=== PATIENT | male | born 1950 | race Caucasian/White ===

== ENCOUNTER → 2018-01-29 | Day surgery (SDC) | payer OTHER ==
[2018-01-27 14:42] LABS: BASOPHILS # (AUTO) 0.1 (0.0-0.1); BASOPHILS % 0.4 % (0.0-1.0); EOSINOPHILS # (AUTO) 0.2 (0.0-0.4); EOSINOPHILS % 1.3 % (0.0-6.0); HEMATOCRIT 45.7 % (38.2-49.6); HEMOGLOBIN 15.1 g/dL (14.0-18.0); LYMPHOCYTES # (AUTO) 2.7 (1.0-3.2); MEAN CORPUSCULAR VOLUME 81.8 fL (81-99); MONOCYTES # (AUTO) 1.3 (0.2-0.8); NEUTROPHILS # (AUTO) 9.8 (2.1-6.9); NEUTROPHILS % 69.4 % (38.7-80.0); PLATELET COUNT 290 x10e3/uL (140-360); RED BLOOD COUNT 5.59 x10e6/uL (4.3-5.7)
[~2018-01-29] MED LIST: ASPIRIN; ASPIRIN PO; BISOPROLOL-HCT1 EAC2 PO; CENTRUM SILVER; CENTRUM SILVER1 EAC3 PO; CINNAMON500 MG PO; FENTANYL CITRATE/PF 100MCG/2 ML INJ ONE; FLAXSEED-FISH-400 MG PO; FUROSEMIDE; HYDROCODONE-AP1 EAC5 PO; HYDROXYCHLOROQ200 MG PO; HYOSCYAMINE SULFATE 0.5 MG/ML INJ ONE; KLOR-CON; MIDAZOLAM HCL 2 MG/2 ML VIAL ONE; PIROXICAM20 MG PO; POTASSIUM CHLOR8 ME1 PO; POTASSIUM CHLORIDE PO; PROPOFOL IV EMULSION 10 MG/ML 50 ML VIAL ONE; TORSEMIDE10 MG PO; ULTRAM 50MG50 MG PO; VERAPAMIL; VERAPAMIL ER120 M1 PO; VITAMIN C; VITAMIN C1000 M1 PO; Z.0.SPIRONOLACTONE50 PO; Z.0.TORSEMIDE20 MG PO; [UNRECOGNIZED DRUG - CODE]
== END | disposition home or self-care (01) ==
LOC: OR 13:03
PROVIDERS: ATTEND Internal Medicine Gastroenterology
DX: Z12.11 Encounter for screening for malignant neoplasm of colon (principal); D12.2 Benign neoplasm of ascending colon; K57.30 Diverticulosis of large intestine without perforation or abscess without bleeding; K64.8 Other hemorrhoids; I10 Essential (primary) hypertension; Z01.810 Encounter for preprocedural cardiovascular examination; Z01.812 Encounter for preprocedural laboratory examination; Z79.82 Long term (current) use of aspirin
CPT/HCPCS: 36415; 45384; 85025; 93005; J1980; J2250; 45378

== ENCOUNTER → 2020-11-26 | Day surgery (SDC) | payer MEDICARE, OTHER ==
[2020-11-25 08:55] LABS: BASOPHILS # (AUTO) 0.1 (0.0-0.1); BASOPHILS % 0.6 % (0.0-1.0); EOSINOPHILS # (AUTO) 0.3 (0.0-0.4); EOSINOPHILS % 2.6 % (0.0-6.0); HEMATOCRIT 48.1 % (38.2-49.6); HEMOGLOBIN 15.3 g/dL (14.0-18.0); LYMPHOCYTES # (AUTO) 2.1 (1.0-3.2); LYMPHOCYTES % 16.1 % (18.0-39.1); MEAN CORPUSCULAR HEMOGLOBIN 26.9 pg (28-32); MEAN CORPUSCULAR HGB CONC 31.8 g/dL (31-35); MEAN CORPUSCULAR VOLUME 84.5 fL (81-99); MONOCYTES # (AUTO) 1.2 (0.2-0.8); MONOCYTES % 9.2 % (4.4-11.3); NEUTROPHILS # (AUTO) 9.1 (2.1-6.9); NEUTROPHILS % 70.7 % (38.7-80.0); PLATELET COUNT 306 x10e3/uL (140-360); RED BLOOD COUNT 5.69 x10e6/uL (4.3-5.7); RED CELL DISTRIBUTION WIDTH 13.9 % (11.7-14.4)
[2020-11-25 09:24] LABS: ANION GAP 15.5 mmol/L (8-16); CALCIUM 9.6 mg/dL (8.4-10.2); CREATININE, SERUM 1.32 mg/dL (0.72-1.25); POTASSIUM 3.5 mmol/L (3.5-5.1)
[~2020-11-26] MED LIST changes: +EPINEPHRINE 1 MG/ML 30ML VIAL ONE; +FISH OIL 1,0001 EAC2 PO; -HYOSCYAMINE SULFATE 0.5 MG/ML INJ ONE; +MELOXICAM7.5 MG PO; -MIDAZOLAM HCL 2 MG/2 ML VIAL ONE; -PROPOFOL IV EMULSION 10 MG/ML 50 ML VIAL ONE; +SODIUM CHLORIDE 0.9% 50ML 100 ML ONE; +TYLENOL ARTHRITIS PO
[2020-11-26 10:05] VITALS: BP 136/73
== END | disposition home or self-care (01) ==
LOC: OR 05:42
PROVIDERS: ATTEND Orthopaedic Surgery
DX: M75.121 Complete rotator cuff tear or rupture of right shoulder, not specified as traumatic (principal); M75.51 Bursitis of right shoulder; I10 Essential (primary) hypertension; Z01.810 Encounter for preprocedural cardiovascular examination; Z01.812 Encounter for preprocedural laboratory examination; Z01.818 Encounter for other preprocedural examination; Z20.822 Contact with and (suspected) exposure to COVID-19; Z79.82 Long term (current) use of aspirin
CPT/HCPCS: 29827; 36415; 71046; 80048; 85025; 93005; C1713; J0690; J3010; U0002

== ENCOUNTER → 2021-05-14 | Outpatient (CLI) | payer MEDICARE, OTHER ==
[~2021-05-14] MED LIST changes: -EPINEPHRINE 1 MG/ML 30ML VIAL ONE; -FENTANYL CITRATE/PF 100MCG/2 ML INJ ONE; -SODIUM CHLORIDE 0.9% 50ML 100 ML ONE
== END ==
LOC: MRI 07:32
PROVIDERS: ATTEND Specialist
DX: S83.222A Peripheral tear of medial meniscus, current injury, left knee, initial encounter (principal); M23.42 Loose body in knee, left knee

== ENCOUNTER 2021-06-24 10:00 | Outpatient (RCR) | payer MEDICARE, OTHER | END 2021-06-28 | LOC: PT 10:00 | PROVIDERS: ATTEND Specialist | DX: S83.242A Other tear of medial meniscus, current injury, left knee, initial encounter (principal); M17.12 Unilateral primary osteoarthritis, left knee; M23.42 Loose body in knee, left knee; M22.42 Chondromalacia patellae, left knee; M67.52 Plica syndrome, left knee ==

== ENCOUNTER 2021-07-08 07:56 | Outpatient (RCR) | payer MEDICARE, OTHER | END 2021-07-29 | LOC: PT 07:56 | PROVIDERS: ATTEND Specialist | DX: S83.242A Other tear of medial meniscus, current injury, left knee, initial encounter (principal); M17.12 Unilateral primary osteoarthritis, left knee; M23.42 Loose body in knee, left knee; M22.42 Chondromalacia patellae, left knee; M67.52 Plica syndrome, left knee ==